=== PATIENT | male | born 1970 | race Caucasian/White ===

== ENCOUNTER 2023-11-29 10:57 | Emergency (ER) | payer BC, SELFPAY ==
[2023-11-29 11:03] VITALS: BP 207/122
--- NOTE | 2023-11-29 11:47 | ED.GENMED ---
History of Present Illness
General
Chief Complaint: Fall
Source: patient
Time Seen by Provider: 11/29/23 11:45
Travel History
Have you had any contact with someone who has COVID-19?: No
Do you have any symptoms of coronavirus? Fever > 100 degrees, chills, cough, shortness of breath, sore throat, loss of taste or smell, muscle aches, or headache?: No
History of Present Illness
History of Present Illness:
53-year-old male presents to the emergency room complaining of pain located right hip region. Patient suffered a fall about 4 days ago. He has developed extensive ecchymosis to the area. He has some pain with weightbearing though he is able to
weight-bear
Past History
Past History
ED Past Medical History: None
ED Past Surgical History: Orthopedic
Social History
Tobacco: Non-smoker
Alcohol: None
Drug: None
Personal:
Living: with family
Employment: Employed
Family History
Family History: Other (non contributory)
Phy Exam
Physical Exam
Physical Exam:
General: Awake, Alert, Oriented X3. No acute distress.
Vitals: unremarkable
Head: Atraumatic
Eyes: Pupils equal, EOMI
Throat: Airway intact, no exudates
Neuro: Grossly nonfocal
Skin: Warm, dry, no rash
Extremities: pulses equal b/l, no edema. Significant ecchymosis noted lateral left hip. There is an abrasion also on the area. No significant pain with range of motion.
Course
Orders/Labs/Results
Orders:
Orders
11/29/23 11:40
Hip, Left 2-3 Views [CR Hip - LT w/wo Pel 2-3 Vw*] Urgent
Comment:
Reason For Exam: fall
Include a pelvis x-ray?: Yes
Vital Signs
Initial and Last Documented VS:
Initial Vital Signs
Temp Pulse BP Pulse Ox
98.3 F 90 207/122 99
11/29/23 11:03 11/29/23 11:03 11/29/23 11:03 11/29/23 11:03
Last Documented Vital Signs
Temp Pulse Resp BP Pulse Ox
98.3 F 82 16 193/102 100
11/29/23 11:03 11/29/23 12:01 11/29/23 12:01 11/29/23 12:01 11/29/23 12:01
*Critical Care Note
Total Time (30-74mins, 75-104mins- exclusive of procedures): Not Applicable
ED Attending Note
-
Portions of this chart may have been created with voice recognition software.� Occasional wrong word or��sound alike� substitutions may have occurred due to the inherent limitations of voice recognition software.
Discharge Plan
Departure
Patient Disposition: Home (Routine Discharge)
Date of Disposition: 11/29/23
Time of Disposition: 12:25
Patient with high blood pressure during this ER visit?: No
Condition: Good
Discharge Problem:
Contusion of hip
Instructions: Contusion (DC), BLOOD PRESSURE
Prescriptions:
New
lisinopril 10 mg tablet
10 mg PO DAILY Qty: 30 0RF
No Action
cephalexin [Keflex] 500 MG capsule
500 mg PO BID Qty: 14 0RF
ibuprofen 600 MG tablet
600 mg PO Q6 PRN (Reason: pain) Qty: 20 0RF
cyclobenzaprine 10 MG tablet
10 mg PO HS Qty: 14 0RF
Referrals:
NONE,* [Family Provider] -
Activity Restrictions/Additional Instructions:
I have sent a prescription for a blood pressure medication, lisinopril 10mg which you should take once a day.
Interventions
Interventions:
*Risk Screen - Suicide Last Done: 11/29/23 12:01
*General Assessment Last Done: 11/29/23 12:01
*Neglect/Abuse Screening Last Done: 11/29/23 12:01
*ED COVID-19 Vaccine History Last Done: 11/29/23 11:08
ED-Musculoskeletal Assessment Last Done: 11/29/23 12:01
ED- Neurological Assessment Last Done: 11/29/23 12:01
ED-Skin Assessment Last Done: 11/29/23 12:01
[2023-11-29 12:01] VITALS: BP 193/102
== END 2023-11-29 12:51 | disposition home or self-care (01) ==
LOC: EMR 10:57
PROVIDERS: EMERGENCY PHYSICIAN Emergency Medicine
DX: S70.02XA Contusion of left hip, initial encounter (principal); W19.XXXA Unspecified fall, initial encounter
CPT/HCPCS: 99283; 73502

== ENCOUNTER → 2025-07-31 14:46 | Outpatient (REF) | payer BC, SELFPAY | LOC: HWRAD 14:46 | PROVIDERS: ATTENDING PHYSICIAN Family Medicine | DX: R74.8 Abnormal levels of other serum enzymes (principal) | CPT/HCPCS: 76700 ==

== ENCOUNTER 2025-09-09 16:40 | Inpatient (IN) | payer BC, SELFPAY ==
[2025-09-09] VITALS (17 sets, daily range): BP systolic 125–197; BP diastolic 87–129; BMI 31.8
[2025-09-09 14:49] LABS: Hematocrit 35.8 % (39.0-52.0); Hemoglobin 13.1 g/dL (13.0-18.0); Mean Corp Hgb Conc. 36.6 g/dL (33.0-37.0); Mean Corpuscular Volume 84.6 fL (80.0-94.0); Nucleated Red Blood Cells % 0 % (-); Platelet Count 216 10^3/uL (130-400); Red Cell Dist. Width 12.0 % (11.5-14.5)
[2025-09-09 14:50] LABS: Venous Blood Gas B.E. -0.2 mmol/L (-4 to +4); Venous Blood Gas O2 Sat % 99.5 %
[2025-09-09 14:51] LABS: Venous Blood Gas O2 Therapy 21
[2025-09-09] MEDS: THIAMINE INJECTION 200 MG IV (14:55)
[2025-09-09] MEDS: ATIVAN 2 MG IV (14:55)
[2025-09-09] MEDS: NSS 1000 IV ×2 (14:57→19:00)
[2025-09-09 14:59] LABS: INR 1.07; PT 14.0 Sec (11.4-14.6)
[2025-09-09 15:05] LABS: ALT (SGPT) 77 U/L (0-50); AST (SGOT) 79 U/L (17-59); Albumin 5.1 g/dl (3.5-5.0); Alkaline Phosphatase 106 U/L (38-126); Blood Urea Nitrogen 12 mg/dl (9-20); Calcium 9.5 mg/dl (8.4-10.2); Carbon Dioxide 18 mmol/L (22-30); Chloride 90 mmol/L (98-107); Glucose 145 mg/dl (70-99); Lipase 74 U/L (23-300); Magnesium 1.3 mg/dl (1.6-2.3); Potassium 3.9 mmol/L (3.5-5.1); Sodium 127 mmol/L (135-145); Total Protein 8.5 g/dl (6.3-8.2); eGFR > 60.00
--- NOTE | 2025-09-09 15:13 | ED.GENMED ---
History of Present Illness
<Rachel Joel PA-C - Last Filed: 09/09/25 15:52>
General
Chief Complaint: Withdrawal Symptoms
Time Seen by Provider: 09/09/25 14:32
History of Present Illness
History of Present Illness:
seeMDM
Past History
<Fam Chavis DO - Last Filed: 09/09/25 15:15>
Past History
ED Past Medical History: None
ED Past Surgical History: Orthopedic
Social History
Tobacco: Non-smoker
Alcohol: None
Drug: None
Personal:
Living: with family
Employment: Employed
Family History
Family History: Other (non contributory)
Phy Exam
<Rachel Joel PA-C - Last Filed: 09/09/25 15:52>
Physical Exam
Physical Exam:
see MDM
Scores
<CARLOS Patel Last Filed: 09/09/25 15:52>
Withdrawal Assessment of Alcohol
Withdrawal Assessment Completed?: Yes
Nausea and Vomiting: Intermittent nausea with dry heaves
Tactile Disturbances: None
Tremor: Moderate, with patient's arms extended
Auditory Disturbances: Not present
Paroxysmal Sweats: No sweat visible
Visual Disturbances: Not present
Anxiety: Moderately anxious, or guarded, so anxiety is inferred
Headache, Fullness in Head: Moderately severe
Agitation: Moderately fidgety and restless
Orientation and clouding of sensorium: Oriented and can do serial additions
Total CIWA Score: 20
Alcohol Withdrawal Medication Recommendation: Equal to MSAS >11. Lorazepam 2-4mg IV NOW and re-assess q1hr
Course
<CARLOS Patel Last Filed: 09/09/25 15:52>
Orders/Labs/Results
Orders:
Orders
09/09/25 14:38
Lorazepam [Ativan] 2 mg IV NOW STA
Thiamine Injection 200 mg IV NOW STA
09/09/25 14:39
Urinalysis Reflex To Culture Urgent
Urine Drug Abuse Screen Urgent
09/09/25 14:43
Alcohol Urgent
Complete Blood Count/With Diff Urgent
Comprehensive Metabolic Panel Urgent
Lipase Urgent
Magnesium Urgent
Phosphorus Urgent
Prothrombin Time Urgent
Troponin I Urgent
Venous Blood Gas Urgent
%Oxygen/Room Air: 21
09/09/25 14:45
Electrocardiogram (*1) Urgent
Reason for Study: Tachycardia
EKG- Treatment ONCE
0.9% Sodium Chloride 1000 ml [Nss] 1,000 ml IV Wide Open mls/hr
09/09/25 15:06
Famotidine [Pepcid] 20 mg IV NOW STA
Lorazepam [Ativan] 1 mg IV NOW STA
09/09/25 15:07
Pantoprazole [Protonix IV] 40 mg IV NOW STA
Abnormal Lab Results
09/09/25
14:43
RBC 4.23 L 10^6/uL
(4.70-6.10)
Hct 35.8 L %
(39.0-52.0)
Absolute Lymphs (auto) 1.0 L 10^3/uL
(1.2-3.4)
Absolute Monos (auto) 0.7 H 10^3/uL
(0.1-0.6)
Neutrophils % 77.7 H %
(42.2-75.2)
Lymphocytes % 13.1 L %
(20.5-51.1)
VBG pH 7.49 H
(7.32-7.43)
VBG pCO2 29 L mmHg
(35-48)
VBG pO2 138 H mmHg
(30-50)
Sodium 127 L mmol/L
(135-145)
Chloride 90 L mmol/L
(98-107)
Carbon Dioxide 18 L mmol/L
(22-30)
Creatinine 0.6 L mg/dL
(0.7-1.3)
Glucose 145 H mg/dl
(70-99)
Magnesium 1.3 L mg/dl
(1.6-2.3)
AST 79 H U/L
(17-59)
ALT 77 H U/L
(0-50)
Total Protein 8.5 H g/dl
(6.3-8.2)
Albumin 5.1 H g/dl
(3.5-5.0)
09/09/25 14:43
09/09/25 14:43
Vital Signs
Initial and Last Documented VS:
Initial Vital Signs
Temp Pulse Resp BP Pulse Ox
36.8 C 133 18 180/102 99
09/09/25 14:23 09/09/25 14:23 09/09/25 14:23 09/09/25 14:23 09/09/25 14:23
Last Documented Vital Signs
Temp Pulse Resp BP Pulse Ox
36.8 C 111 19 174/92 94
09/09/25 15:14 09/09/25 15:00 09/09/25 15:00 09/09/25 15:00 09/09/25 15:14
<Fam Chavis, DO - Last Filed: 09/09/25 15:15>
Orders/Labs/Results
Orders:
Orders
09/09/25 14:38
Lorazepam [Ativan] 2 mg IV NOW STA
Thiamine Injection 200 mg IV NOW STA
09/09/25 14:39
Urinalysis Reflex To Culture Urgent
Urine Drug Abuse Screen Urgent
09/09/25 14:43
Alcohol Urgent
Complete Blood Count/With Diff Urgent
Comprehensive Metabolic Panel Urgent
Lipase Urgent
Magnesium Urgent
Phosphorus Urgent
Prothrombin Time Urgent
Troponin I Urgent
Venous Blood Gas Urgent
%Oxygen/Room Air: 21
09/09/25 14:45
Electrocardiogram (*1) Urgent
Reason for Study: Tachycardia
EKG- Treatment ONCE
0.9% Sodium Chloride 1000 ml [Nss] 1,000 ml IV Wide Open mls/hr
09/09/25 15:06
Famotidine [Pepcid] 20 mg IV NOW STA
Lorazepam [Ativan] 1 mg IV NOW STA
09/09/25 15:07
Pantoprazole [Protonix IV] 40 mg IV NOW STA
Abnormal Lab Results
09/09/25
14:43
RBC 4.23 L 10^6/uL
(4.70-6.10)
Hct 35.8 L %
(39.0-52.0)
Absolute Lymphs (auto) 1.0 L 10^3/uL
(1.2-3.4)
Absolute Monos (auto) 0.7 H 10^3/uL
(0.1-0.6)
Neutrophils % 77.7 H %
(42.2-75.2)
Lymphocytes % 13.1 L %
(20.5-51.1)
VBG pH 7.49 H
(7.32-7.43)
VBG pCO2 29 L mmHg
(35-48)
VBG pO2 138 H mmHg
(30-50)
Sodium 127 L mmol/L
(135-145)
Chloride 90 L mmol/L
(98-107)
Carbon Dioxide 18 L mmol/L
(22-30)
Creatinine 0.6 L mg/dL
(0.7-1.3)
Glucose 145 H mg/dl
(70-99)
Magnesium 1.3 L mg/dl
(1.6-2.3)
AST 79 H U/L
(17-59)
ALT 77 H U/L
(0-50)
Total Protein 8.5 H g/dl
(6.3-8.2)
Albumin 5.1 H g/dl
(3.5-5.0)
09/09/25 14:43
09/09/25 14:43
Vital Signs
Initial and Last Documented VS:
Initial Vital Signs
Temp Pulse Resp BP Pulse Ox
36.8 C 133 18 180/102 99
09/09/25 14:23 09/09/25 14:23 09/09/25 14:23 09/09/25 14:23 09/09/25 14:23
Last Documented Vital Signs
Temp Pulse Resp BP Pulse Ox
36.8 C 111 19 174/92 94
09/09/25 15:14 09/09/25 15:00 09/09/25 15:00 09/09/25 15:00 09/09/25 15:14
<Rachel Joel PA-C - Last Filed: 09/09/25 15:52>
MDM/Problems Addressed
Differential Diagnosis Includes:
see MDM
MDM/Problems Addressed:
Note:
CHIEF COMPLAINT(S)
Alcohol withdrawal and recurrent vomiting.
HISTORY OF PRESENT ILLNESS
The patient is a 55-year-old male with a history of daily alcohol consumption who presents with symptoms suggestive of alcohol withdrawal. He reports that he has been drinking 'all the time' for a long period, with the last instance of sobriety
being approximately three years ago. The patient consumed up to one pint of alcohol daily, with the last drink ingested at around 11:30 AM today, approximately three to four ounces. He last consumed vicodin yesterday evening. Since last night around
8 PM, the patient has experienced persistent vomiting, predominantly of bile. In addition to nausea and vomiting, the patient reports severe headaches, rated nine on a scale of ten, alongside symptoms including anxiety, agitation, and feelings of
restlessness. He denies any visual hallucinations or sensations of 'creepy crawlies' on his skin. He did not report tremors originating in the hands, though acknowledged an overall feeling of unwellness.
pt was able to take a few sips of vodka today around 11 am
he also was prescribed vicodin recently for opiate dependency after knee replacmeent (was on percocet)
he last took this yesterday.
SOCIAL DETERMINANTS AFFECTING HEALTH
The patient reports daily alcohol consumption up to one pint, indicating alcohol dependence. He has also been using prescribed Percocet for pain management, taking two pills every four hours, which may suggest potential prescription medication
misuse or dependency.
REVIEW OF SYSTEMS
- Gastrointestinal: Nausea and vomiting since last night, primarily bile.
- Neurological: Severe headache, rated 9/10 in intensity, anxiety, and agitation reported.
- Psychiatric: Notable agitation and restlessness. Reports feelings of anxiety. Denies visual hallucinations or tactile disturbances.
PHYSICAL EXAM
Nursing notes reviewed and vital signs reviewed.
- Neurological: Agitated and uncomfortable. Severe headache reported.
- Skin: Sweating observed intermittently, particularly during episodes of vomiting.
PROBLEM LIST
- Acute alcohol withdrawal
- Acute headache
- Vomiting
PLAN
- Administer Lorazepam (Ativan) to manage withdrawal symptoms.
- Initiate intravenous fluids to address dehydration from vomiting.
- Conduct blood work for further evaluation.
- Monitor and consider admission to the unit for management of withdrawal symptoms.
DIFFERENTIAL DIAGNOSIS
The Differential Diagnosis includes, in no particular order and is not limited to:
1. Alcohol withdrawal syndrome
2. Gastroenteritis
3. Medication side effects (Percocet misuse)
4. Migraine headache
5. Anxiety disorder
6. Peptic ulcer disease
7. Electrolyte imbalance
8. Gastroesophageal reflux disease
9. Hepatitis
10. Pancreatitis
55 y/o M with h/o alcohol and opiate dependency
here with alcohol withdrawal, vomiting
started vomiting last night aroun d8 pm and wasn't able to tolearte alcohol
he is shaky, has headache, treomr, anxiety, restlessness
no hallucinations or seizures
has had sobirety before last 3 years ago
daily drinker since
more heavily recently since surgery
also using opiates
hypertesnive, tachy
CIWA 22
nontender abdomen
oriented
no hallucinations
2 mg of IV ativan improved vitals somehwat, still sypmtomatic
getting additional iv ativan
labs c/w AKA
ph normal
thiamine ordered
<Rachel Joel PA-C - Last Filed: 09/09/25 15:52>
*Pulse Oximetry
Patient hypoxic: no (99)
*Critical Care Note
Total Time (30-74mins, 75-104mins- exclusive of procedures): Not Applicable
<Fam Chavis DO - Last Filed: 09/09/25 15:15>
*Pulse Oximetry
SaO2: 94
Oxygen Mode of Delivery: Room air
ED Attending Note
<Fam Chavis DO - Last Filed: 09/09/25 15:15>
ED Attending Note
Patient seen and examined by attending physician: Yes
I performed the substantive portion of visit, reviewed & personally made and approve the management plan that is documented in note by myself or TIMMY.: Yes
I performed a history and physical exam of patient and discussed management with resident, I reviewed resident's note and agree with documented findings and plan of care.: Yes
ED Attending Note:
55-year-old male presents to the ER for help with quitting drinking and using opiates. Patient states that he has been throwing up since last night. He had a lot to drink yesterday and was able to take a few shots of vodka around 11 this a.m. but
had subsequent emesis. He does have a prior history of alcohol withdrawal but denies alcohol withdrawal seizures. He reports diffuse headache and diffuse tremulousness. He is also using opiates which were prescribed for his knee pain. Vital
signs reviewed, patient is awake, alert, ruborous complexion, diffusely tremulous, mucous membranes tacky, PERRL, EOMI, moving all extremities symmetrically without focal deficit, heart regular tachycardic rate and rhythm, lungs are clear to
auscultation without wheezes rales or rhonchi, GCS is 15. Patient given 2 of Ativan initially with minimal change in symptoms. Additional dose ordered along with Protonix. Will discuss with hospitalist for admission.
-
Portions of this chart may have been created with voice recognition software.� Occasional wrong word or��sound alike� substitutions may have occurred due to the inherent limitations of voice recognition software.
Discharge Plan
Departure
Patient Disposition: Admit
Date of Disposition: 09/09/25
Time of Disposition: 15:09
Admit to: ICU
Presentation/result/management discussed w/ accepting MD/DO: Hospitalist
Condition: Fair
Covid-19: Not Applicable
Discharge Problem:
Alcohol withdrawal
Prescriptions:
No Action
metoprolol succinate [Toprol XL] 50 mg Tablet Extended Release 24 Hr
50 mg PO DAILY
amlodipine [Norvasc] 10 mg Tablet
10 mg PO DAILY
pantoprazole [Protonix] 40 mg Tablet,Delayed Release (Dr/Ec)
40 mg PO DAILY
lisinopril 40 mg Tablet
40 mg PO DAILY
Referrals:
UNKNOWN - PT DOES,NOT KNOW [Family Provider]
Interventions
Interventions:
*Risk Screen - Suicide Last Done: 09/09/25 14:23
*General Assessment Last Done: 09/09/25 14:23
*Neglect/Abuse Screening Last Done: 09/09/25 14:23
*ED COVID-19 Vaccine History Last Done: 09/09/25 14:29
*ED Influenza Vaccine History Last Done: 09/09/25 14:29
[facility] Fall Risk Assessment Tool Last Done: 09/09/25 14:29
OY-Tgggiu-Iztushzgtk Assessment Last Done: 09/09/25 14:29
ED- Neurological Assessment Last Done: 09/09/25 14:29
ED-Psychological Assessment Last Done: 09/09/25 14:29
Discharge Date and Time
Print Language: MAORI
[2025-09-09] MEDS: ATIVAN 1 MG IV ×3 (15:14→18:28)
[2025-09-09 15:16] LABS: Troponin I 0.026 ng/ml
[2025-09-09] MEDS: PROTONIX IV 40 MG IV (15:20)
--- NOTE | 2025-09-09 15:43 | HPS.HSE ---
Family Physician
-
Family Physician: NOT KNOW UNKNOWN - PT DOES
Chief Complaint
-
nausea and vomiting
History of Present Illness
Patient is a 55-year-old male with past medical history significant for essential hypertension and GERD who presented to [facility] ED for evaluation of nausea and vomiting since last evening. Patient states that he started with vomiting last night and
has not been able to hold anything down since then. He reports drinking approximately 20 ounces of vodka per day and occasional fireball shooter. He has been mixing his vodka with prescribed Percocet post left partial knee replacement. He stated he
did similar 10 years ago with his right knee and did end up in rehab, he is unsure of symptoms of withdraw at that time. He notes he drank 3-4 ounces of vodka today. Notes headache from all the vomiting. Denies any fever, chills, cough, chest pain,
palpitations, dairrhea or urinary symptoms.
Medical History
Past Medical History
Past Medical History: Reports Other
Additional Past Medical History:
essential hypertension
GERD
fatty liver disease
Past Surgical History: Reports Other
Additional Past Surgical History:
Left partial knee replacement 08/2025
right partial knee replacement
Social History
Tobacco: Former Smoker
Alcohol: Daily (20 ounces vodka )
Drug: None
Personal:
Living: With Family
Family History
Family History: Not pertinent
Allergies / Home Medications
Allergies reflects when Allergies were last updated in [facility].
Home Medications with original date entered in [facility]
Allergy/Medication List:
Allergies
Allergy/AdvReac Type Severity Reaction Status Date / Time
No Known Allergies Allergy Verified 09/09/25 14:22
Home Medications
amlodipine 10 mg tablet (Norvasc) 10 mg PO DAILY Blood Pressure 09/09/25
lisinopril 40 mg tablet 40 mg PO DAILY Blood Pressure 09/09/25
metoprolol succinate 50 mg tablet,extended release 24 hr (Toprol XL) 50 mg PO DAILY Heart Disease/Condition 09/09/25
pantoprazole 40 mg tablet,delayed release (Protonix) 40 mg PO DAILY Gastrointestinal Issue 09/09/25
Review of Systems
-
History Source: Patient
Constitutional: Denies Fever or Chills
EENT: Denies Sore Throat
Respiratory: Denies Cough, Hemoptysis or Trouble Breathing
Cardiac: Denies Chest Pain, Diaphoresis, Palpitations or Syncope
Abdomen/GI: Reports Nausea and Vomiting; Denies Abdominal Pain or Diarrhea
: Denies Dysuria, Frequency or Urgency
Musculoskeletal: Denies Joint Pain
Skin: Denies Rash
Neurological: Reports Headache; Denies Dizzy, Weakness or Numbness
Physical Exam
Vital Signs
Vital Signs
Temp Pulse Resp BP Pulse Ox
98.3 F 111 19 174/92 94
09/09/25 15:14 09/09/25 15:00 09/09/25 15:00 09/09/25 15:00 09/09/25 15:14
Physical Exam
General: Well Developed, Well Nourished, No Apparent Distress, Comfortable and Conversant
HEENT: NormoCephalic, PERRLA, Nose Appears Normal and Ears Appear Normal
Respiratory: Clear and Non Labored Respirations; No Wheezes, Rales or Rhonchi
Cardiac: Regular Rhythm, Tachycardia and Murmur; No Peripheral Edema
GI: Soft, Non Tender, Non Distended and Normal Bowel Sounds
Musculoskeletal: No No Clubbing, No Cyanosis or No Edema
Skin: Warm and IV/Catheter Site
Neuro: Awake and AO x 3
Psych: Calm and Intact Judgment/Insight
Laboratory Results
-
09/09/25 14:43
09/09/25 14:43
Laboratory Results
PT 14.0 Sec (11.4-14.6) 09/09/25 14:43
INR 1.07 09/09/25 14:43
Total Bilirubin 1.0 mg/dl (0.2-1.3) 09/09/25 14:43
AST 79 U/L (17-59) H 09/09/25 14:43
ALT 77 U/L (0-50) H 09/09/25 14:43
Alkaline Phosphatase 106 U/L (38-126) 09/09/25 14:43
Troponin I 0.026 ng/ml 09/09/25 14:43
Lipase 74 U/L (23-300) 09/09/25 14:43
Data Reviewed
-
Medical Tests (Nuc Med, Echo, EKG etc): Report Reviewed by me (EKG: SINUS TACHYCARDIA CANNOT RULE OUT ANTERIOR INFARCT , AGE UNDETERMINED)
Lab Data: Labs Reviewed by me (Na 127, chloride 90, CO2 18, mag 1.3. AST 79, ALT 77)
Impression/Plan
-
IMPRESSION/PLAN:
#nausea and vomiting 2/2 gastritis vs. ETOH withdraw vs. infectious process
chloride 90, CO2 18, Alcohol 14
VBG: pH 7.49, pCO2 29, pO2 138, HCO3 22.1, O2 Sat 99.5
EKG: SINUS TACHYCARDIA
CANNOT RULE OUT ANTERIOR INFARCT , AGE UNDETERMINED
- Admit to ICU
- Consult Silicator
- MSAS protocol
- Precedex gtt, reluctant to phenobarb protocol r/t LFTs
- IVF NSS 100cc/hr
- antiemetics
- supportive care
#hyponatremia
Na 127
likely from potomania
- IVF NSS 100cc/hr
- monitor BMP
#hypomagnesemia
mag 1.3
- repleted with 2gm in ED
- monitor and replete as indicated
#transaminitis suspect ETOH hepatitis
AST 79, ALT 77
- encourage cessation
- trend LFTs
#essential hypertension
- continue amlodipine, lisinopril and metoprolol
#GERD
- continue pantoprazole
#fatty liver disease
Code status: full code
DVT prophylaxis: SCDs
--- NOTE | 2025-09-09 15:46 | W.PN.UPDATE ---
Update Note
Progress Note Update
This note serves as an addendum to the H&P by pastry chef TIMMY�
Sigrid Wallace
HPI
55M
PMHX; ETOH use disorder, HTN, chr Vicodin decedent since knee replacement (was on Percocet)
- pw concern for ETOH withdrawal.
- has been drinking 'all the time' for a long period, with the last instance of sobriety being approximately three years ago
- consumed up to one pint of alcohol daily, with the last drink ingested at around 11:30 AM today, approximately three to four ounces.
- last consumed Vicodin yesterday evening.
- Since last night around 8 PM, the patient has experienced persistent vomiting, predominantly of bile.
- nausea and vomiting, the patient reports severe headaches, rated nine on a scale of ten
- reports anxiety, agitation, and feelings of restlessness.
- denies any visual hallucinations or tactile hallucination
- report tremors originating in the hands
- overall feeling of unwellness.
- able to take a few sips of vodka today around 11 am
- currently on prescription Vicodin recently for opiate dependency after knee replacmeent (was on percocet) he last took this yesterday.
Relevant VS
Temp Pulse Resp BP Pulse Ox
98.3 F 111 19 174/92 94
09/09/25 15:14 09/09/25 15:00 09/09/25 15:00 09/09/25 15:00 09/09/25 15:14
09/09/25
14:23 09/09/25
14:37
Pulse 133 125
Blood pressure 180/102 182/129
PE
Sinus tachycardia
Hypertensive
Gen:
HEENT:
Neck:
Lungs:
Cor:
Abdomen:�
MELT HELPER:
MS:
Psych:
Relevant Data
09/09/25
14:43
WBC 7.9
Hgb 13.1
Plt Count 216
INR 1.07
Sodium 127 L
Chloride 90 L
Carbon Dioxide 18 L
Creatinine 0.6 L
eGFR > 60.00
Glucose 145 H
Magnesium 1.3 L
Total Bilirubin 1.0
AST 79 H
ALT 77 H
Troponin I 0.026
Albumin 5.1 H
Lipase 74
ETOH 14
NO PRIOR hospitalist admission:
ASSESSMENT & PLAN
Severe acute ETOH WDS with autonomic hyperarousal s/s - ETOH level 14 - last sips of ETOH today
Hi risk for DT
Severe chr ETOH use disorder
last ETOH today by not tolerating
- start Precedex gtt protocol
- reluctant to give PHB protocol to abn LFTs
- IVF
- Fall prevention
- ICU consult
Abnormal LFTs - suspect ETOH hepatitis
- cessation of ETOH
- trend LFTs
Hyponatremia - probably Potomania
NG MA - likely ETOH ketosis
- IV NS
- Trend Na
acute N/V due to ETOH WDS
- IV NS
- anti emetics
pHTN
- c/w Lisinopril, Metoprolol XL and Amlodipine
DVT Px: SCD
Full code
ICU
Total Critical Care Time_45____ minutes. I was immediately available to the patient and staff. I personally examined, reviewed labs, diagnostic images/reports, interpretations, treatment plans, discussed patient care with other providers and
family or caregivers (if patient is unable to make decisions), entered orders as appropriate and documented the medical record.
[2025-09-09] MEDS: MAGNESIUM SULFATE 50 IV (16:11)
--- NOTE | 2025-09-09 17:05 | CM ---
Chart reviewed. Spoke with patient at ED bedside
recent knee surgery
Lives with at [address]
Independent
no DME
PCP has one but does not remember the name
RX yes
[facility]
no hx of VN nor SNF
DCP is to go home
Cm will continue to follow up for dcp needs
[2025-09-09 17:23] LABS: Urine Character Clear (Clear)
[2025-09-09] MEDS: TYLENOL 650 MG PO (17:26)
--- NOTE | 2025-09-09 17:30 | EDRN ---
the pt brought in 3 of his prescription pill bottles with him from home; amlodipine, metoprolol, and lisinopril. the ER pharmacy consultant took this pts home pill bottles down to pharmacy for safe keeping during pts admission to the hospital. METEOROLOGIST LIAISON will
be notified of above in report
[2025-09-09 17:32] LABS: Urine Red Blood Cell 0-2 /HPF (0-2); Urine White Cell 0-2 /HPF (0-5)
[2025-09-09 18:38] LABS: APTT 25.5 Sec (23.4-35.0)
--- NOTE | 2025-09-09 18:57 | PTCARENOTE ---
1800-Received pt from ED.Awake,alert,oriented x 3.Speech is appropriate.+ coarse tremors bl upper and lower ext.MSAS 8. c/o headache and sore throat from vomiting.ST noted.IVF infusing.Lungs CTA.POX 95% on RA.No emesis,slight nausea.No void.Left
knee with healed incision and scabbing noted.Plan of care discussed.
--- NOTE | 2025-09-09 19:00 | PTCARENOTE ---
Vital signs downloaded from previous shift - cannot verify vitals prior to 1900.
[2025-09-09] MEDS: ZOFRAN 4 MG IV (19:06)
[2025-09-09 19:12] LABS: GGTP 261 U/L (15-73)
[2025-09-09] MEDS: ATIVAN 1 MG PO ×2 (19:28→22:13)
[2025-09-09] MEDS: LOPRESSOR 50 MG PO (19:28)
[2025-09-09] MEDS: PRECEDEX 100 IV (19:40)
--- NOTE | 2025-09-09 20:46 | PTCARENOTE ---
Assumed care of patient at 1900. Patient AAOx3, drowsy/restless periods and patient impulsive @ times w/ tremors throughout. MSAS per protocol - see worklist/DEC. ST on the monitor. BP elevated - NURSERY TEACHER notified and one time dose of PO lopressor given
- see DEC. Weak pedal pulses bilaterally. POX 93-97% on room air - lungs diminished throughout bilaterally. +BS. Soft round/obese nontender belly. Patient complaining of nausea, no vomiting - PRN Zofran given - see DEC. Patient continent of bowel
and bladder - voiding clear yellow urine in urinal. Healed L knee incision w/ scabbing. RAC 20 capped. RFA 18 w/ NSS infusing as ordered - see DEC. Precedex started thru RFA d/t patient w/ increasing anxiety/restlessness - see DEC/worklist.
[2025-09-10] VITALS (24 sets, daily range): BP systolic 122–169; BP diastolic 82–104; BMI 31.0
--- NOTE | 2025-09-10 00:11 | PTCARENOTE ---
Systems reviewed. Patient reports nausea improving. MSAS protocol ongoing - see worklist.
[2025-09-10] MEDS: NSS 1000 IV (03:54)
[2025-09-10 04:32] LABS: Hematocrit 35.3 % (39.0-52.0); Hemoglobin 12.5 g/dL (13.0-18.0); Mean Corp Hgb Conc. 35.4 g/dL (33.0-37.0); Mean Corpuscular Volume 89.1 fL (80.0-94.0); Platelet Count 184 10^3/uL (130-400); Red Cell Dist. Width 11.9 % (11.5-14.5)
[2025-09-10] MEDS: REFRESH EYE DROPS (PF) 1 DROPS OPHTH ×3 (04:39→22:01)
--- NOTE | 2025-09-10 04:40 | PTCARENOTE ---
Systems reviewed. No major changes in physical assessment.
[2025-09-10 04:56] LABS: ALT (SGPT) 70 U/L (0-50); AST (SGOT) 71 U/L (17-59); Albumin 4.2 g/dl (3.5-5.0); Alkaline Phosphatase 89 U/L (38-126); Blood Urea Nitrogen 9 mg/dl (9-20); Calcium 9.3 mg/dl (8.4-10.2); Carbon Dioxide 25 mmol/L (22-30); Chloride 100 mmol/L (98-107); Estimated Creatinine Clearance > 125 ml/min; Glucose 117 mg/dl (70-99); Magnesium 2.4 mg/dl (1.6-2.3); Potassium 4.2 mmol/L (3.5-5.1); Sodium 132 mmol/L (135-145); Total Protein 7.5 g/dl (6.3-8.2); eGFR > 60.00
[2025-09-10] MEDS: ATIVAN 1 MG PO ×5 (06:34→23:59)
[2025-09-10] MEDS: ZOFRAN 4 MG IV ×2 (07:20→13:02)
[2025-09-10] MEDS: THIAMINE INJECTION 200 MG IV ×2 (07:20→19:46)
[2025-09-10] MEDS: TOPROL XL 50 MG PO (07:25)
[2025-09-10] MEDS: PROTONIX 40 MG PO (07:25)
[2025-09-10] MEDS: NORVASC 10 MG PO (07:25)
[2025-09-10] MEDS: FOLVITE 1 MG PO (07:25)
[2025-09-10] MEDS: ZESTRIL 40 MG PO (07:25)
--- NOTE | 2025-09-10 08:22 | W.PN.HOSP.TC ---
Today's Communication/Plan
-
see PN
Assessment / Plan
Assessment / Plan
55yo M with PMHX of TKA on Aug 09, HTN, GERD, alcohol use d/o came with few days of profuse vomiting, found in alcohol withdrawal. ALso was mixing prescription percocet with alcohol due to pain with PT for his recent knee replacement.
A/P:
#Alcohol use d/o with alcohol withdrawal cnnot exclude opioid withdrawal
symptoms improved overnight.
Mild LFT elevation without bilirubinemia and with normal lipase, benign abdominal exam
with AST/ALT elevated less then 2x ULN -reasonable to start Phenobabr bridge with close LFT follow up
check HepC
MSAS with Ativan
watch for DT
Thiamine/Folate
Wean off Precedex
#mild leukopenia
BM suppression from alcohol is the most likely reason
follow CBC
if persistent in few weeks - PCP to refer to hematology
#Essential HTN
#GERD
cont home meds
DVT ppx lovenox
Full code
I have spent at least 59min of critical care time revewing chart, test results, communication with consultantsd and providing direct patient care
Anticipated Discharge: > 48 hours
Subjective/Interval History
-
Date of Service: September 10, 2025
Objective Data
-
Labs:
Laboratory Results
09/10/25
04:20
WBC 4.2 L
Hgb 12.5 L
Hct 35.3 L
Plt Count 184
Sodium 132 L
Potassium 4.2
Chloride 100
Carbon Dioxide 25
BUN 9
Creatinine 0.6 L
Glucose 117 H
Calcium 9.3
Total Bilirubin 1.1
AST 71 H
ALT 70 H
Alkaline Phosphatase 89
Vital Signs:
Vital Signs
Temp Pulse Resp BP Pulse Ox
98.5 F 80 17 157/97 97
09/10/25 04:09 09/10/25 07:15 09/10/25 07:15 09/10/25 07:00 09/10/25 07:33
I&O
09/09/25 09/10/25 09/11/25
06:59 06:59 06:59
Intake Total 2080.5 / 2186.0 105.5 / 105.5
Output Total 3200 / 3700 500 / 500
Balance -1119.5 / -1514.0 -394.5 / -394.5
Review of Systems
-
History Source: Patient
All other systems: Reviewed and negative
Physical Exam
-
General: No Apparent Distress
HEENT: Normocephalic
Respiratory: Clear to Auscultation
Cardiac: Regular Rhythm
GI: Soft, Nontender, Nondistended and Normal Bowel Sounds
Musculoskeletal: No Clubbing, No Cyanosis and No Edema
Neuro: Awake, Alert, Oriented and AO x 3
Psych: Calm
[2025-09-10] MEDS: TYLENOL 650 MG PO ×4 (08:25→23:59)
[2025-09-10] MEDS: PHENOBARBITAL 97.5 MG IV ×3 (08:25→21:42)
--- NOTE | 2025-09-10 08:25 | CON.INTV ---
Consultation
Consultation Request
Date/Time Consultation Requested: 09/09/20251746
Date/Time Consultation Performed: 09/10/2025810
Requesting Provider: MEGHAN Dan
Performing Provider: Dr. Segura
Reason for Consultation: Alcohol withdrawal
Medical History
-
Chief Complaint: Vomiting
History of Present Illness:
55-year-old male with a past medical history of hypertension, alcohol use and GERD who presented with vomiting. Patient had a partial left knee replacement in early August 2025. He has been drinking alcohol and taking his prescribed Percocet.
He had done a similar thing about 10 years ago when he had right knee surgery and he ended up in rehab. He had his last drink on the morning prior to arrival here to the hospital. Usually drinks up to 1 pint of alcohol daily with occasional shots
of fireball. He appeared tremulous and he felt unwell. Initially, he was afebrile with pulse rate 133, respiratory rate 18, BP 180/102, and saturating 99% on room air. Initial labs pertinent for normal WBC at 7.9, Hb 13.1, sodium 127, magnesium
1.3, beta-hydroxybutyrate 1.15, and T. bili 1.0. Initial CXR showed no acute cardiopulmonary process. In the ER he was given 1 mg Ativan, 1 L NS 0.9%, PPI, thiamine and magnesium. Due to his alcohol withdrawal, Precedex drip was started and he
was admitted to the ICU. Electric Fan Assembler service consulted for additional management/recommendations.
Patient seen and evaluated this morning. Currently off Precedex drip. Heart rate 79. He is resting in bed in no acute distress. Afebrile overnight. Currently on room air, breathing comfortably and saturating 96%.
PMHx: Hypertension, GERD, alcohol use, fatty liver disease
PSHx: Bilateral partial knee replacements
Past Medical History
Past Medical History: Other (Above as per HPI)
Past Surgical History: Other (Above as per HPI)
Social History
Tobacco: Former Smoker
Alcohol: Daily
Drug: None
Personal:
Living: With Family
Family History
Family History: CAD (Father)
Allergies / Home Medications
Allergies
Allergy/AdvReac Type Severity Reaction Status Date / Time
No Known Allergies Allergy Verified 09/09/25 14:22
Home Medications
�Medication �Instructions �Recorded �Confirmed �Last Taken �Type
amlodipine 10 mg tablet (Norvasc) 10 mg PO DAILY Blood Pressure 09/09/25 09/09/25 Unknown History
lisinopril 40 mg tablet 40 mg PO DAILY Blood Pressure 09/09/25 09/09/25 Unknown History
metoprolol succinate 50 mg 50 mg PO DAILY Heart 09/09/25 09/09/25 Unknown History
tablet,extended release 24 hr Disease/Condition
(Toprol XL)
pantoprazole 40 mg tablet,delayed 40 mg PO DAILY Gastrointestinal 09/09/25 09/09/25 Unknown History
release (Protonix) Issue
Review of Systems
-
History Source: Patient
All other systems: Negative unless noted
Vitals / Labs / Diagnostic Testing
Vital Signs
Temp Pulse Resp BP Pulse Ox
98.4 F 71 13 149/104 97
09/10/25 08:00 09/10/25 08:30 09/10/25 08:30 09/10/25 08:00 09/10/25 08:30
Lab Data
09/10/25 04:20
09/10/25 04:20
Laboratory Results
09/09/25 09/09/25
14:43 17:47
PT 14.0
INR 1.07
APTT 25.5 Cancelled
Diagnostic Testing:
Physical Exam
-
HEENT: Normocephalic
Cardiovascular: S1/S2 and Peripheral Edema (negative)
Respiratory: Wheeze (negative), Rales (negative), Rhonchi (negative) and Non-Labored Respirations
GI: Soft, Non Distended, Non Tender and Normal Bowel Sounds
Neurology: Awake, Alert and Tremors (mild)
Skin: Warm and Dry
General: Respiratory Distress (negative), Comfortable, Fever (negative) and Chills (negative)
Assessment
-
Assessment: 55-year-old male with a past medical history of hypertension, alcohol use and GERD who presented with vomiting. Patient had a partial left knee replacement in early August 2025. He has been drinking alcohol and taking his prescribed
Percocet. He had done a similar thing about 10 years ago when he had right knee surgery and he ended up in rehab. He had his last drink on the morning prior to arrival here to the hospital. Usually drinks up to 1 pint of alcohol daily with
occasional shots of fireball. He appeared tremulous and he felt unwell. Initially, he was afebrile with pulse rate 133, respiratory rate 18, BP 180/102, and saturating 99% on room air. Initial labs pertinent for normal WBC at 7.9, Hb 13.1, sodium
127, magnesium 1.3, beta-hydroxybutyrate 1.15, and T. bili 1.0. Initial CXR showed no acute cardiopulmonary process. In the ER he was given 1 mg Ativan, 1 L NS 0.9%, PPI, thiamine and magnesium. Due to his alcohol withdrawal, Precedex drip was
started and he was admitted to the ICU. Electric Fan Assembler service consulted for additional management/recommendations.
Chronic conditions DIRECTOR OF ACCOUNTING: Hypertension, GERD, alcohol use, fatty liver disease
Impression:
#Acute alcohol withdrawal requiring Precedex drip
#Hyponatremia due to beer potomania
#Alcoholic/starvation ketoacidosis � now resolved
#Transaminitis due to alcohol use
#Fatty liver disease
#GERD
#Hypertension
Plan:
- Patient was admitted to the ICU due to alcohol withdrawal requiring Precedex drip
- Precedex infusion is now off as of this morning
- Continue with MSAS with prn Ativan
- Recommend [facility] consult
- Thiamine + folic acid
- Phenobarbital protocol
- Keep MAP >65 and avoid hypertension with goal SBP <160
- Okay to continue with home medications and may need to add another antihypertensive agent if needed
- If using clonidine then monitor for rebound hypertension if patient stops using suddenly; may be better off changing his Toprol-XL to Coreg given less adverse reactions if patient is non-compliant upon discharge
- Stop IVF as pt is tolerating diet
- Anti-emetics as needed; Trend QTc if using zofran, goal <460ms (461ms on his EKG from 09/09/2025)
- CXR does show retrocardiac opacification, likely due to atelectasis
- Monitor temperature curve and trend WBC; if patient spikes a fever then would panculture and consider starting Unasyn
- Maintain SpO2 >90-94%, using supplemental O2 if needed
- Aspiration precautions, keep HOB >30-45�
- prn nebulized bronchodilators - not currently bronchospastic
- Incentive spirometer encouraged 10x per hour for at least 4 hrs a day
- Trend sNa with goal 135-145
- Trend LFTs
- Replete electrolytes with K>4, Mg>2
- Maintain euglycemia with goal BG 140-180; recommend to check A1C for a baseline
- PPI (home med for GERD)
- Trend H/H and transfuse if needed to keep Hb>7g/dL; keep plt>20k, unless there is concern for bleeding then keep plt>50k
- DVT ppx: LMWH
Patient is stable, off Precedex drip with no signs of delirium tremens. Stable for downgrade out of ICU to telemetry. No additional recommendations at this time. Electric Fan Assembler/Pulmonary service will now sign off. Thank you for allowing us to be
involved in the care of this patient. Please reconsult if there are any additional questions/concerns, or if patient's respiratory status deteriorates.
Total time spent today was 57 minutes for this encounter. Time includes reviewing laboratory test/imaging results, reviewing pertinent medical records, obtaining and reviewing medical history, performing an appropriate exam, ordering medications,
tests and procedures. Time also includes documentation of this encounter, coordinating patient care and communicating with other healthcare professionals. Total time does not include separately billed tests performed on this date of service.
--- NOTE | 2025-09-10 08:31 | PTCARENOTE ---
Assumed care of patient. Patient AAOx3, pleasant. MSAS per protocol - see worklist/DEC. SR on the monitor. BP elevated, AM hypertensives given. Weak pedal pulses bilaterally. SpO2 97% on room air - lungs diminished throughout bilaterally. +BS. Soft
round/obese nontender belly. Patient complaining of headache, Tylenol given. PRN Zofran given as requested by pt for upcoming breakfast. Patient continent of bowel and bladder - voiding clear yellow urine in urinal. Healed L knee incision w/
scabbing. RAC 20 capped. RFA 18 w/ NSS and Precedex. updated by phone.
--- NOTE | 2025-09-10 10:57 | CM ---
Addendum entered by Gloria Frederick 09/10/25 15:20:
Spoke to Milagro from [facility]< she met with pt and gave him resources for outpatient follow up.
Original Note:
Received consult, I met with pt, he is agreeable to speaking with [facility]. I spoke to Johnny from [facility], someone will be in to see him today.
--- NOTE | 2025-09-10 12:03 | PTCARENOTE ---
Precedex off since 934. Phenobarbital started. Pt relaxing comfortably. MSAS currently 0.
[2025-09-10] MEDS: CATAPRES 0.1 MG PO ×2 (15:14→21:45)
[2025-09-10] MEDS: LOVENOX 40 MG SC (17:42)
[2025-09-11] VITALS (8 sets, daily range): BP systolic 123–162; BP diastolic 93–104; BMI 30.8
[2025-09-11] MEDS: MELATONIN 5 MG PO (01:11)
[2025-09-11 03:48] LABS: Hematocrit 36.4 % (39.0-52.0); Hemoglobin 12.5 g/dL (13.0-18.0); Mean Corp Hgb Conc. 34.3 g/dL (33.0-37.0); Mean Corpuscular Volume 89.4 fL (80.0-94.0); Nucleated Red Blood Cells % 0 % (-); Platelet Count 167 10^3/uL (130-400); Red Cell Dist. Width 12.0 % (11.5-14.5)
[2025-09-11 04:17] LABS: ALT (SGPT) 85 U/L (0-50); AST (SGOT) 87 U/L (17-59); Albumin 4.3 g/dl (3.5-5.0); Alkaline Phosphatase 87 U/L (38-126); Blood Urea Nitrogen 7 mg/dl (9-20); Calcium 9.0 mg/dl (8.4-10.2); Carbon Dioxide 26 mmol/L (22-30); Chloride 99 mmol/L (98-107); Estimated Creatinine Clearance > 125 ml/min; Glucose 113 mg/dl (70-99); Magnesium 2.1 mg/dl (1.6-2.3); Potassium 3.6 mmol/L (3.5-5.1); Sodium 132 mmol/L (135-145); Total Protein 7.3 g/dl (6.3-8.2); eGFR > 60.00
[2025-09-11 06:06] LABS: Hepatitis C Antibody Negative (Negative)
[2025-09-11] MEDS: THIAMINE INJECTION 200 MG IV ×2 (07:34→20:01)
[2025-09-11] MEDS: PHENOBARBITAL 97.5 MG IV (07:35)
[2025-09-11] MEDS: CATAPRES 0.1 MG PO ×3 (07:35→22:25)
[2025-09-11] MEDS: ZESTRIL 40 MG PO (07:38)
[2025-09-11] MEDS: TOPROL XL 50 MG PO (07:38)
[2025-09-11] MEDS: NORVASC 10 MG PO (07:38)
[2025-09-11] MEDS: FOLVITE 1 MG PO (07:38)
[2025-09-11] MEDS: PROTONIX 40 MG PO (07:38)
[2025-09-11] MEDS: TYLENOL 650 MG PO ×3 (08:59→20:04)
[2025-09-11] MEDS: REFRESH EYE DROPS (PF) 1 DROPS OPHTH ×3 (09:00→22:43)
--- NOTE | 2025-09-11 11:54 | W.PN.HOSP.TC ---
Today's Communication/Plan
-
expedite phenobarb taper
follow labs
chck stool for c.diff and WBC
Assessment / Plan
Assessment / Plan
55yo M with PMHX of TKA on Aug 09, HTN, GERD, alcohol use d/o came with few days of profuse vomiting, found in alcohol withdrawal. ALso was mixing prescription percocet with alcohol due to pain with PT for his recent knee replacement.
A/P:
#Alcohol use d/o with alcohol withdrawal cnnot exclude opioid withdrawal
symptoms improved overnight.
Mild LFT elevation without bilirubinemia and with normal lipase, benign abdominal exam
with AST/ALT elevated less then 2x ULN -reasonable to start Phenobarb bridge with close LFT follow up. Target rapid taper since patient much improving
HepC neg
MSAS with Ativan
watch for DT
Thiamine/Folate
Wean off Precedex
#DIarrhea
check c.diff and stool WBC
#mild leukopenia
BM suppression from alcohol is the most likely reason
follow CBC
if persistent in few weeks - PCP to refer to hematology
#Essential HTN
#GERD
cont home meds
DVT ppx lovenox
Full code
I have spent at least 51min of critical care time revewing chart, test results, communication with consultantsd and providing direct patient care
Anticipated Discharge: 24 - 48 hours
Subjective/Interval History
-
Date of Service: September 11, 2025
Objective Data
-
Labs:
Laboratory Results
09/11/25
03:32
WBC 6.1
Hgb 12.5 L
Hct 36.4 L
Plt Count 167
Sodium 132 L
Potassium 3.6
Chloride 99
Carbon Dioxide 26
BUN 7 L
Creatinine 0.6 L
Glucose 113 H
Calcium 9.0
Total Bilirubin 0.9
AST 87 H
ALT 85 H
Alkaline Phosphatase 87
Vital Signs:
Vital Signs
Temp Pulse Resp BP Pulse Ox
97.9 F 79 16 154/100 96
09/11/25 08:00 09/11/25 11:30 09/11/25 03:21 09/11/25 07:37 09/11/25 08:00
I&O
09/10/25 09/11/25 09/12/25
06:59 06:59 06:59
Intake Total 2080.5 / 2186.0 1496.5 / 1496.5 450 / 450
Output Total 3200 / 3700 500 / 500
Balance -1119.5 / -1514.0 996.5 / 996.5 450 / 450
Review of Systems
-
History Source: Patient
All other systems: Reviewed and negative
Physical Exam
-
General: No Apparent Distress
HEENT: Normocephalic
Respiratory: Clear to Auscultation
GI: Soft, Nontender and Nondistended
Neuro: Awake, Alert, Oriented and AO x 3
Psych: Calm
--- NOTE | 2025-09-11 12:41 | CM ---
Met with pt bedside. Is not planning on utilizing inpatient or outpatient resources at this time. States he wants to go home and 'get healthy'. Considering going back to the gym. [facility] made aware
Continues on phenobarb taper.
Plan: DC to home with [facility] resources
[2025-09-11] MEDS: IMODIUM 2 MG PO (13:26)
--- NOTE | 2025-09-11 14:52 | PTCARENOTE ---
Patient has remained AAOx4 throughout shift, having some diarrhea, stool sample sent, imodium ordered. Patient is tele. inclined to do outpatient rehab. phenobarb taper adjusted. systems reviewed, unchanged.
[2025-09-11] MEDS: LUMINAL 64.8 MG PO ×2 (16:03→22:25)
[2025-09-11] MEDS: LOVENOX SC (17:41)
--- NOTE | 2025-09-11 22:12 | PTCARENOTE ---
Report given to 2N RN. Pt being transported via wheelchair with all of his belongings.
[2025-09-11] MEDS: ATIVAN 1 MG PO (22:25)
--- NOTE | 2025-09-11 22:31 | PTCARENOTE ---
Received tx from ICU, pt ambulated from wheelchair to bed with no assistance. Evening meds administered. Oriented to call light and room, pt resting comfortably in bed with call light at side at this time.
[2025-09-12 03:11] VITALS: BP 139/93
[2025-09-12 07:00] VITALS: BP 164/95
[2025-09-12] MEDS: TOPROL XL 50 MG PO (08:16)
[2025-09-12] MEDS: LUMINAL 64.8 MG PO (08:16)
[2025-09-12] MEDS: FOLVITE 1 MG PO (08:16)
[2025-09-12] MEDS: THIAMINE INJECTION 200 MG IV (08:16)
[2025-09-12] MEDS: ZESTRIL 40 MG PO (08:16)
[2025-09-12] MEDS: CATAPRES 0.1 MG PO ×2 (08:16→15:29)
[2025-09-12] MEDS: PROTONIX 40 MG PO (08:16)
[2025-09-12] MEDS: NORVASC 10 MG PO (08:16)
[2025-09-12] MEDS: REFRESH EYE DROPS (PF) 1 DROPS OPHTH ×2 (08:19→13:32)
[2025-09-12 09:18] LABS: ALT (SGPT) 110 U/L (0-50); AST (SGOT) 103 U/L (17-59); Albumin 4.8 g/dl (3.5-5.0); Alkaline Phosphatase 94 U/L (38-126); Blood Urea Nitrogen 8 mg/dl (9-20); Calcium 9.6 mg/dl (8.4-10.2); Carbon Dioxide 25 mmol/L (22-30); Chloride 100 mmol/L (98-107); Estimated Creatinine Clearance > 125 ml/min; Glucose 110 mg/dl (70-99); Magnesium 2.2 mg/dl (1.6-2.3); Potassium 4.1 mmol/L (3.5-5.1); Sodium 134 mmol/L (135-145); Total Protein 8.3 g/dl (6.3-8.2); eGFR > 60.00
--- NOTE | 2025-09-12 10:30 | W.PN.HOSP.TC ---
Today's Communication/Plan
-
dc
Assessment / Plan
Assessment / Plan
55yo M with PMHX of TKA on Aug 09, HTN, GERD, alcohol use d/o came with few days of profuse vomiting, found in alcohol withdrawal. Also was mixing prescription Percocet with alcohol due to pain with PT for his recent knee replacement. Improved
rapidly. Hd no signs of tremors, hallucinations or abdominal discomfort on the day of D/C. Completed phenobarb taper. LFT elevated 2/2 alcohol, already has orders for outpatient labs by his PCP - advised to do in 3-4 days to follow on resolution.
Has good appetite. Medically stable to be d/c home
A/P:
#Alcohol use d/o with alcohol withdrawal cnanot exclude opioid withdrawal
symptoms improved overnight.
Mild LFT elevation without bilirubinemia and with normal lipase, benign abdominal exam
with AST/ALT elevated less then 2x ULN -reasonable to start Phenobarb bridge with close LFT follow up. Target rapid taper since patient much improving
HepC neg
MSAS with Ativan
watch for DT
Thiamine/Folate
Wean off Precedex
#Diarrhea
resolved
c.diff - carrieronly, no active toxin found
#mild leukopenia
BM suppression from alcohol is the most likely reason
resolved
#Essential HTN
#GERD
cont home meds
DVT ppx lovenox
Full code
I have spent at least 36min of critical care time revewing chart, test results, communication with consultantsd and providing direct patient care
Anticipated Discharge: Today
Subjective/Interval History
-
Date of Service: September 12, 2025
Objective Data
-
Labs:
Laboratory Results
09/12/25
08:05
Sodium 134 L
Potassium 4.1
Chloride 100
Carbon Dioxide 25
BUN 8 L
Creatinine 0.7
Glucose 110 H
Calcium 9.6
Total Bilirubin 1.1
AST 103 H
ALT 110 H
Alkaline Phosphatase 94
Vital Signs:
Vital Signs
Temp Pulse Resp BP Pulse Ox
97.9 F 77 14 164/95 96
09/12/25 07:00 09/12/25 07:00 09/12/25 07:00 09/12/25 07:00 09/12/25 07:00
I&O
09/11/25 09/12/25 09/13/25
06:59 06:59 06:59
Intake Total 1496.5 / 1496.5 1100 / 1100
Output Total 500 / 500
Balance 996.5 / 996.5 1099
Review of Systems
-
History Source: Patient
All other systems: Reviewed and negative
Physical Exam
-
General: No Apparent Distress
HEENT: Normocephalic
Neuro: Awake, Alert, Oriented, AO x 3 and No Motor Deficits; Negative Tremors
Psych: Calm; Negative Confused, Agitated or Anxious
--- NOTE | 2025-09-12 10:36 | W.DCSUMMARY ---
Discharge Summary
Discharge Data
Date of Admission: 09/09/25
Date of Discharge: 09/12/25
-
Pending Results: No
Hospital Course
55yo M with PMHX of TKA on Aug 09, HTN, GERD, alcohol use d/o came with few days of profuse vomiting, found in alcohol withdrawal. Also was mixing prescription Percocet with alcohol due to pain with PT for his recent knee replacement. Improved
rapidly. Hd no signs of tremors, hallucinations or abdominal discomfort on the day of D/C. Completed phenobarb taper. LFT elevated 2/2 alcohol, already has orders for outpatient labs by his PCP - advised to do in 3-4 days to follow on resolution.
Has good appetite. Medically stable to be d/c home
I have spent at least 36min of critical care time revewing chart, test results, communication with consultantsd and providing direct patient care
Patient was managed for:
#Alcohol use d/o with alcohol withdrawal cnanot exclude opioid withdrawal
#Diarrhea
#mild leukopenia
#Essential HTN
#GERD
Discharge Plan
-
Patient Disposition: Home (Routine Discharge)
Discharge Diagnosis/Procedures: Alcohol withdrawal
Diet: Low Fat
Activity: As tolerated
Driving Restrictions: No driving for 24 hours
Blood Work: LFT in 3-4 days with family doctor
Referrals:
UNKNOWN - PT DOES,NOT KNOW [Family Provider]
Prescriptions:
New
folic acid 1 mg Tablet
1 mg PO DAILY Qty: 30 0RF
thiamine mononitrate (vit B1) 100 mg Tablet
100 mg PO DAILY Qty: 30 0RF
clonidine HCl 0.1 mg Tablet
0.1 mg PO TID Qty: 90 0RF
Continued
metoprolol succinate [Toprol XL] 50 mg Tablet Extended Release 24 Hr
50 mg PO DAILY
amlodipine [Norvasc] 10 mg Tablet
10 mg PO DAILY
pantoprazole [Protonix] 40 mg Tablet,Delayed Release (/Ec)
40 mg PO DAILY
lisinopril 40 mg Tablet
40 mg PO DAILY
Discharge Orders:
Discharge Patient (As Directed); Ordered 09/12/25
Ordered By: Luther Gamez
Discharge Date and Time
Print Language: QATARI
[2025-09-12] MEDS: TYLENOL 650 MG PO (11:15)
--- NOTE | 2025-09-12 12:50 | CM ---
Patient seen at bedside on . Patient states son to pick him up at 4:15 and he again declined [facility] resources stating he has a lot of supports. CM will continue to follow for discharge planning needs.
Plan; home with no needs.
[2025-09-12] MEDS: LUMINAL 32.4 MG PO (15:29)
[2025-09-12 15:48] VITALS: BP 106/73
== END 2025-09-12 16:18 | disposition home or self-care (01) | DRG 897 ==
LOC: 2 NORTH 16:40
PROVIDERS: Nurse Practitioner Family; Physician Assistant; ADMITTING PHYSICIAN Internal Medicine; ATTENDING PHYSICIAN Internal Medicine; EMERGENCY PHYSICIAN Emergency Medicine; OTHER PHYSICIAN Internal Medicine Critical Care Medicine
DX: F10.239 Alcohol dependence with withdrawal, unspecified (principal); E87.1 Hypo-osmolality and hyponatremia; E87.29 Other acidosis; F11.20 Opioid dependence, uncomplicated; J98.11 Atelectasis; D72.819 Decreased white blood cell count, unspecified; I10 Essential (primary) hypertension; K21.9 Gastro-esophageal reflux disease without esophagitis; K76.0 Fatty (change of) liver, not elsewhere classified; Z96.653 Presence of artificial knee joint, bilateral; Z87.891 Personal history of nicotine dependence; E83.42 Hypomagnesemia; E86.0 Dehydration; F41.9 Anxiety disorder, unspecified; Y90.0 Blood alcohol level of less than 20 mg/100 ml; Z79.899 Other long term (current) drug therapy; Z82.49 Family history of ischemic heart disease and other diseases of the circulatory system
CPT/HCPCS: 71045; 80053; 80306; 80307; 81003; 81015; 82010; 82077; 82805; 82977; 83690; 83735; 84100; 84484; 85025; 85027; 85610; 85730; 86803; 87324; 87449; 89055; 93005; 96361; 96374; 96375; 96376; 99285

== ENCOUNTER 2025-09-30 23:41 | Emergency (ER) | payer BC, SELFPAY ==
[2025-09-30 23:59] VITALS: BP 111/58
[2025-10-01] VITALS (19 sets, daily range): BP systolic 93–154; BP diastolic 58–84; BMI 27.7
[2025-10-01] MEDS: ATIVAN 1 MG IV ×2 (00:47→05:37)
[2025-10-01] MEDS: ZOFRAN 4 MG IV ×2 (01:05→12:22)
[2025-10-01 01:10] LABS: Hematocrit 43.4 % (39.0-52.0); Hemoglobin 14.4 g/dL (13.0-18.0); Mean Corp Hgb Conc. 33.2 g/dL (33.0-37.0); Mean Corpuscular Volume 92.9 fL (80.0-94.0); Nucleated Red Blood Cells % 0 % (-); Platelet Count 305 10^3/uL (130-400); Red Cell Dist. Width 13.1 % (11.5-14.5)
[2025-10-01 01:16] LABS: ALT (SGPT) 90 U/L (0-50); AST (SGOT) 99 U/L (17-59); Albumin 5.0 g/dl (3.5-5.0); Alkaline Phosphatase 97 U/L (38-126); Blood Urea Nitrogen 14 mg/dl (9-20); Calcium 9.1 mg/dl (8.4-10.2); Carbon Dioxide 20 mmol/L (22-30); Chloride 106 mmol/L (98-107); Glucose 120 mg/dl (70-99); Potassium 3.9 mmol/L (3.5-5.1); Sodium 145 mmol/L (135-145); Total Protein 8.2 g/dl (6.3-8.2); eGFR > 60.00
--- NOTE | 2025-10-01 02:58 | ED.GENMED ---
History of Present Illness
General
Chief Complaint: Alcohol Problem
Source: patient
Exam Limitations: none
Time Seen by Provider: 10/01/25 00:43
Nursing documentation reviewed up to this point in time: agreed with
History of Present Illness
History of Present Illness:
Note:
CHIEF COMPLAINT(S)
Alcohol withdrawal symptoms
HISTORY OF PRESENT ILLNESS
The patient is a 55-year-old male who underwent surgery and subsequently experienced alcohol withdrawal symptoms. The patient reported having his last drink at some point today but could not specify the exact time. The symptoms described include
sweating, vomiting mucus, and shaking, which began when he woke up at 9:30 PM. The patient also noted feeling unusually awake and stated, 'This is not right.' He acknowledged previous episodes of alcohol withdrawal but mentioned that this episode
feels different. The patient reported current feelings of thirst, shakiness, and a headache, but denied recent drug use, mentioning past substance use related to prescribed opioids. He expressed regret for delaying his surgery for seven years due to
concerns over potential alcohol-related complications.
PLAN
The plan involves administering medication to help manage the patients alcohol withdrawal symptoms and closely monitoring his condition.
DIFFERENTIAL DIAGNOSIS
The Differential Diagnosis includes, in no particular order, and is not limited to:
1. Alcohol Withdrawal Syndrome
2. Dehydration
3. Postoperative Complications
4. Delirium Tremens
5. Infection
6. Electrolyte Imbalance
7. Acute Gastroenteritis
8. Anxiety Disorder
9. Gastritis
10. Migraine
Physical Exam
General: no apparent distress, not acutely ill, intoxicated
Neck: supple. no meningeal signs. normal posterior pharynx
Heart: s1/s2 regular rate and rhythm, no murmur. equal radial
pulses.
HEENT: Pupils equal round reactive to light, EOMI
Lungs: no acute respiratory distress. clear bilaterally
Abdomen: normal bowel sounds. not tender. no CVAT
Neuro: alert and oriented. no focal neurological deficits cranial nerves II through XII intact
Skin: no rash
Psychiatric: well kept. interactive and cooperative
Extremities: no edema. no calf tenderness. negative homans. good distal pulses
Disposition:
SUMMARY OF ENCOUNTER
The patient, a 55-year-old male, presented with alcohol withdrawal symptoms following surgery. He described sweating, vomiting mucus, and shaking, accompanied by feelings of thirst, shakiness, and a headache. He acknowledged a previous history of
alcohol withdrawal episodes, noting that this one felt different. The patient expressed concerns about these symptoms being particularly unusual and reported having had his last drink today, although the exact time was unspecified. Despite having a
history of postponing surgery due to fears of alcohol-related complications, he was seen in the emergency department to manage his current withdrawal symptoms.
PLAN
Administer medication to manage alcohol withdrawal symptoms and closely monitor the patients condition.
MEDICATION RECONCILIATION
1. Medications will be administered to manage the patients alcohol withdrawal symptoms, specifics not mentioned in the transcript.
MEDICAL DECISION MAKING
-Number and Complexity of Problems Addressed: Chronic conditions affecting care include a history of alcohol withdrawal. Differential Diagnosis includes Alcohol Withdrawal Syndrome, Dehydration, Postoperative Complications, Delirium Tremens,
Infection, Electrolyte Imbalance, Acute Gastroenteritis, Anxiety Disorder, Gastritis, and Migraine.
-Diagnosis: Await further evaluation for potential rehabilitation placement considering the patients symptoms and history.
-Risk: Prescription medication was prescribed. Patient management involves monitoring for potential alcohol withdrawal complications.
Past History
Past History
ED Past Medical History: None
ED Past Surgical History: Orthopedic
Social History
Tobacco: Non-smoker
Alcohol: None
Drug: None
Personal:
Living: with family
Employment: Employed
Family History
Family History: Other (non contributory)
Course
Orders/Labs/Results
Orders:
Orders
10/01/25 00:43
Lorazepam [Ativan] 2 mg .ROUTE .STK-MED ONE
10/01/25 00:46
Lorazepam [Ativan] 1 mg IV NOW STA
10/01/25 00:50
Alcohol Urgent
CMP [Comprehensive Metabolic Panel] Urgent
Complete Blood Count/With Diff Urgent
10/01/25 00:54
Urine Drug Abuse Screen Urgent
Date Specimen was Collected: 10/01/25
Time Specimen was Collected: 00:55
10/01/25 01:04
Ondansetron Injectable [Zofran] 4 mg .ROUTE .STK-MED ONE
10/01/25 01:05
Ondansetron Injectable [Zofran] 4 mg IV NOW STA
Abnormal Lab Results
10/01/25
00:50
RBC 4.67 L 10^6/uL
(4.70-6.10)
Absolute Lymphs (auto) 4.2 H 10^3/uL
(1.2-3.4)
Carbon Dioxide 20 L mmol/L
(22-30)
Glucose 120 H mg/dl
(70-99)
AST 99 H U/L
(17-59)
ALT 90 H U/L
(0-50)
10/01/25 00:50
10/01/25 00:50
Vital Signs
Initial and Last Documented VS:
Initial Vital Signs
Temp Pulse Resp BP Pulse Ox
98.4 F 91 20 111/58 96
09/30/25 23:59 09/30/25 23:59 09/30/25 23:59 09/30/25 23:59 09/30/25 23:59
Last Documented Vital Signs
Temp Pulse Resp BP Pulse Ox
98.4 F 84 15 93/58 91
09/30/25 23:59 10/01/25 02:45 10/01/25 02:45 10/01/25 02:00 10/01/25 02:45
*Pulse Oximetry
SaO2: 91
Oxygen Mode of Delivery: Room air
ED Attending Note
-
Portions of this chart may have been created with voice recognition software.� Occasional wrong word or��sound alike� substitutions may have occurred due to the inherent limitations of voice recognition software.
Discharge Plan
Departure
Patient with high blood pressure during this ER visit?: Yes
Condition: Good
Discharge Problem:
Alcohol use disorder
Instructions: Alcohol Use Disorder (DC), BLOOD PRESSURE
Prescriptions:
No Action
metoprolol succinate [Toprol XL] 50 mg Tablet Extended Release 24 Hr
50 mg PO DAILY
amlodipine [Norvasc] 10 mg Tablet
10 mg PO DAILY
pantoprazole [Protonix] 40 mg Tablet,Delayed Release (Dr/Ec)
40 mg PO DAILY
lisinopril 40 mg Tablet
40 mg PO DAILY
folic acid 1 mg Tablet
1 mg PO DAILY Qty: 30 0RF
thiamine mononitrate (vit B1) 100 mg Tablet
100 mg PO DAILY Qty: 30 0RF
clonidine HCl 0.1 mg Tablet
0.1 mg PO TID Qty: 90 0RF
Referrals:
Mustapha Allred DO [Family Provider, Family Practice]
Interventions
Interventions:
[facility] Risk Assessment Tool Last Done: 09/30/25 23:41
*Risk Screen - Suicide (C-SSRS) Last Done: 09/30/25 23:59
Discharge Date and Time
Print Language: BAHAMIAN
[2025-10-01] MEDS: TORADOL 30 MG IV (05:36)
[2025-10-01] MEDS: MAALOX 30 ML PO ×2 (05:36→09:03)
[2025-10-01] MEDS: ATIVAN 2 MG IV ×3 (07:44→12:21)
== END 2025-10-01 13:12 ==
LOC: EMR 23:41
PROVIDERS: Emergency Medicine; EMERGENCY PHYSICIAN Emergency Medicine; FAMILY PHYSICIAN Family Medicine
DX: F10.239 Alcohol dependence with withdrawal, unspecified (principal); R03.0 Elevated blood-pressure reading, without diagnosis of hypertension
CPT/HCPCS: 99285; 96374; 96375 ×2; 96376 ×4; 80053; 82077; 85025